=== PATIENT | female | born 1990 | race Caucasian/White ===

== ENCOUNTER → 2018-01-12 08:28 | Outpatient (CLI) | payer BC, SELFPAY ==
[2018-01-12 08:55] LABS: Hemoglobin A1C 5.3 % (0.0-7.0)
== END ==
PROVIDERS: Visit Provider Nurse Practitioner Obstetrics & Gynecology
DX: O24.419 Gestational diabetes mellitus in pregnancy, unspecified control (principal)
CPT/HCPCS: 36415; 83036

== ENCOUNTER → 2018-05-23 16:42 | Outpatient (CLI) | payer BC, SELFPAY ==
[2018-05-23 17:02] LABS: Basophils % 0.2 % (0.1-2.0); Eosinophils # 0.1 K/mm3 (0.0-0.4); Eosinophils % 0.9 % (0.1-12.0); Hemoglobin 11.8 g/dL (12.2-16.2); Lymphocytes # 2.6 K/mm3 (0.7-4.5); Lymphocytes % 20.2 K/mm3 (10-50); Mean Corpuscular HGB Conc 32.7 g/dL (31.8-35.4); Mean Corpuscular Volume 88.7 fl (81-99); Mean Platelet Volume 6.8 fl (7.4-10.4); Monocytes # 0.6 K/mm3 (0.1-1.0); Monocytes % 4.8 % (1.7-9.3); Neutrophils # 9.6 K/mm3 (1.8-7.8); Neutrophils % 73.9 % (37.0-80.0); Platelet Count 350 K/mm3 (142-424); Red Blood Count 4.06 M/mm3 (4.20-5.40); Red Cell Distribution Width 14.7 % (11.5-17.5)
[2018-05-25 10:13] LABS: HIV Screen 4th Generation wRfx Non Reactive (Non Reactive); Hepatitis B Surface Antigen Negative (Negative); Hepatitis C Antibody <0.1 s/co ratio (0.0-0.9); Rubella Antibodies, IgG 3.85 index (Immune >0.99)
[2018-05-26 09:09] LABS: Rapid Plasma Reagin Ab Titer Non Reactive (NonRea<1:1)
== END ==
PROVIDERS: Family Provider Nurse Practitioner Obstetrics & Gynecology; PCP Nurse Practitioner Family; Visit Provider Nurse Practitioner Obstetrics & Gynecology
DX: Z34.90 Encounter for supervision of normal pregnancy, unspecified, unspecified trimester (principal)
CPT/HCPCS: 36415; 85025; 86592; 86703; 86762; 86850; 87340; 87380; G0432

== ENCOUNTER → 2018-06-05 13:03 | Outpatient (CLI) | payer BC, SELFPAY ==
--- NOTE | 2018-06-05 13:05 | US_ITS ---
US OB transvaginal HISTORY: ITS.REASON: US OB Dates ORDERING PHYSICIAN: Rivera Burnett MD PATIENT AGE: 28 years COMPARISON: None FINDINGS: An intrauterine gestational sac is present with a pole with a crown-rump length of 2.90cm correlating to gestational age of 9w6d . heart tones are present with an FHR of 186 bpm's. Yolk sac is noted. The amnion and chorion have not yet fused. Adnexa: There is a 2 similar left corpus luteum cyst. IMPRESSION: Live intrauterine gestation at 9 weeks 6 days as described above. Estimated due date by ultrasound is 01/02/2019
== END ==
PROVIDERS: Family Provider Nurse Practitioner Obstetrics & Gynecology; Visit Provider Nurse Practitioner Obstetrics & Gynecology
DX: O26.841 Uterine size-date discrepancy, first trimester (principal)
CPT/HCPCS: 76817

== ENCOUNTER → 2018-08-16 12:32 | Outpatient (CLI) | payer BC, SELFPAY ==
--- NOTE | 2018-08-16 12:37 | US_ITS ---
US OB /maternal detail: INDICATION: ITS.REASON: US OB Complete ORDERING PHYSICIAN: Rivera Burnett MD PATIENT AGE: 28 years TECHNIQUE: ultrasound transabdominal scanning. COMPARISON: No previous relevant studies. FINDINGS: Single viable intrauterine gestation. Breech position. Placenta: ANT w/ Post Accessory lobe placenta grade 1. There is average amount fluid. The cervix appears satisfactory. Closed and measuring 5 cm in length. Complete survey performed and was unremarkable on the submitted images as in PACS. No discrete anomalies identified on survey imaging by technologist. Active fetus. Three-vessel cord with satisfactory umbilical cord insertion. 4- chamber heart noted. Survey of brain & ventricles unremarkable. Face and neck survey unremarkable. Diaphragm and chest views unremarkable. Abdomen: Both kidneys noted and unremarkable. Stomach noted and satisfactory. Spine: Survey of the spine satisfactory with no anomalies identified nor imaged. Both arms and legs noted. Amniotic Fluid: Adequate. Maternal adnexa: No significant findings. Measurements: Average ultrasound age 20w2d. Gestational Age 20w0d. Estimated due date by ultrasound age 0301/01/2019. Estimated weight 362 grams. BPD = 19w6d OFD = 21w0d HC = 19w6d AC = 20w6d FL = 20w4d Growth Percentile= 77 percentile Heart Rate = 158 Cerebellum = 20w0d Humerus = 20w4d HC/AC is 1.11 (1.09-1.26). CI is 73% (70-86%). FL/BPD is 74%. FL/AC is 22%. IMPRESSION: Single live fetus in breech presentation with an average ultrasound age of 20 weeks and 2 days. No obvious anomalies. Please see above for detail
== END ==
PROVIDERS: Visit Provider Nurse Practitioner Obstetrics & Gynecology
DX: Z36.0 Encounter for antenatal screening for chromosomal anomalies (principal)
CPT/HCPCS: 76811

== ENCOUNTER → 2018-09-28 07:32 | Outpatient (CLI) | payer BC, SELFPAY ==
[2018-09-28 08:56] LABS: Glucose,Fasting 90 mg/dL (60-105)
[2018-09-28 10:48] LABS: Glucose 1 Hour 210 mg/dL (74-106)
== END ==
PROVIDERS: Visit Provider Nurse Practitioner Obstetrics & Gynecology
DX: Z34.90 Encounter for supervision of normal pregnancy, unspecified, unspecified trimester (principal)
CPT/HCPCS: 36415; 82951

== ENCOUNTER → 2018-10-04 07:26 | Outpatient (CLI) | payer BC, SELFPAY ==
[2018-10-04 07:59] LABS: Glucose,Fasting 93 mg/dL (60-105)
[2018-10-04 09:36] LABS: Glucose 1 Hour 225 mg/dL (74-106)
[2018-10-04 10:40] LABS: Glucose 2 Hour 138 mg/dL (74-106)
[2018-10-04 11:23] LABS: Glucose 3 Hour 166 mg/dL (74-106)
== END ==
PROVIDERS: Visit Provider Nurse Practitioner Obstetrics & Gynecology
DX: Z34.90 Encounter for supervision of normal pregnancy, unspecified, unspecified trimester (principal)
CPT/HCPCS: 36415; 82951

== ENCOUNTER → 2018-11-29 17:48 | Outpatient (CLI) | payer BC, SELFPAY | PROVIDERS: Visit Provider Nurse Practitioner Obstetrics & Gynecology | DX: Z34.90 Encounter for supervision of normal pregnancy, unspecified, unspecified trimester (principal); Z3A.35 35 weeks gestation of pregnancy | CPT/HCPCS: 86403 ==

== ENCOUNTER 2018-12-03 17:52 | Inpatient (IN) ==
[2018-12-03 18:12] LABS: Microscopic, Urine URINE MICROSCOPIC (MICROSCOPIC)
[2018-12-03 18:14] LABS: Appearance,Urine CLOUDY (Clear); Bilirubin,Urine Negative (Negative); Blood, Urine 3+ (Negative); Color,Urine ORANGE (Yellow); Glucose,Urine (UA) Negative (Negative); Ketones,Urine 1+ (Negative); Leukocyte Esterase,Urine Negative (Negative); Protein,Urine Negative (Negative); Specific Gravity, Urine <= 1.005 (1.005-1.030); Urobilinogen,Urine 0.2 EU/dl (0.2)
[2018-12-03 18:22] LABS: RBC,Urine 50-100 #/hpf (0-3)
[2018-12-03 20:35] LABS: Basophils % 0.2 % (0.1-2.0); Eosinophils # 0.1 K/mm3 (0.0-0.4); Eosinophils % 0.6 % (0.1-12.0); Hematocrit 37.3 % (37.0-47.0); Hemoglobin 12.9 g/dL (12.2-16.2); Lymphocytes # 2.8 K/mm3 (0.7-4.5); Lymphocytes % 20.8 % (10-50); Mean Corpuscular HGB Conc 34.4 g/dL (31.8-35.4); Mean Corpuscular Hemoglobin 31.7 pg (27.0-31.2); Mean Corpuscular Volume 92.1 fl (81-99); Monocytes # 0.7 K/mm3 (0.1-1.0); Monocytes % 4.8 % (1.7-9.3); Neutrophils % 73.6 % (37.0-80.0); Platelet Count 240 K/mm3 (142-424); Red Blood Count 4.05 M/mm3 (4.20-5.40); Red Cell Distribution Width 13.4 % (11.5-17.5); White Blood Count 13.5 K/mm3 (4.8-10.8)
[2018-12-03 20:44] LABS: Anion Gap 15.3 mEq/L (5-15); Calcium 9.3 mg/dL (8.5-10.1); Potassium 3.3 mmoL/L (3.5-5.1); Uric Acid 4.1 mg/dL (2.6-7.2)
[2018-12-03 21:02] LABS: D-Dimer 570 ng/mL (0-400)
[2018-12-03 21:07] LABS: Activated Partial Thrombo Time 26.5 seconds (23.6-34.0); INR 0.89 (0.9-1.1); Prothrombin Time 9.2 seconds (9.4-11.8)
[2018-12-03 21:11] LABS: Fibrinogen > 500 mg/dL (204-500)
--- NOTE | 2018-12-04 06:56 | Progress Note ---
Internal Medicine - PN: Subj *Date: 12/03/18 *Time: 21:00 Interval history: This 28-year-old 2, para 1, Ab0 white female is admitted at 35-5/7 weeks with regular contractions at 2 cm of dilatation. She has been on labetalol at home, and her blood pressure on admission is 152/101. DTRs are normal. She states that she passed a large clot at home, but no bleeding is evident here. External monitor reveals a normal reactive contraction stress test. She was initially treated with a single dose of labetalol, intravenous fluids, and [place], but her contractions continue. Cervix is unchanged. She states that she was admitted early with her first and treated with intravenous magnesium sulfate before delivery at 36 weeks. The plan is to admit for intravenous magnesium sulfate for 2 days for neuroprotection and in an effort to stop her labor. [facility] labs have been drawn. Please refer to her complete up-to-date history and physical on the chart. Exam Vital signs and Labs for Last 24 Hours: Temp Pulse Resp BP Pulse Ox 97.6 F 99 H 20 154/103 H 94 L 12/03/18 18:04 12/03/18 19:40 12/03/18 18:04 12/03/18 19:40 12/03/18 18:04 Laboratory Results - last 24 hr 12/03/18 18:00: Urine Color [place], Urine Appearance Cloudy, Urine pH 7.0, Ur Specific [place] <= 1.005, Urine Protein Negative, Urine Glucose (UA) Negative, Urine Ketones 1+, Urine Blood 3+, Urine Nitrate Negative, Urine Bilirubin Negative, Urine Urobilinogen 0.2, Ur Leukocyte Esterase Negative, Urine RBC 50- 100, Ur Squamous Epith Cells 3-5 12/03/18 19:50: WBC 13.5 H, RBC 4.05 L, Hgb 12.9, Hct 37.3, MCV 92.1, MCH 31.7 H , MCHC 34.4, RDW 13.4, Plt Count 240, MPV 8.0, Neut % (Auto) 73.6, Lymph % (Auto) 20.8, [place] % (Auto) 4.8, Eos % (Auto) 0.6, Baso % (Auto) 0.2, Neut # (Auto) 10.0 H, Lymph # (Auto) 2.8, [place] # (Auto) 0.7, Eos # (Auto) 0.1, Baso # (Auto) 0.0 12/03/18 19:50: PT 9.2 L, INR 0.89 L, APTT 26.5, Fibrinogen > 500 H, D-Dimer 570 H* 12/03/18 19:50: Sodium 136, Potassium 3.3 L, Chloride 101, Carbon Dioxide 23, Anion Gap 15.3 H, BUN 7, Creatinine 0.41 L, Estimated Creat Clear 254, Estimated GFR 185, Est GFR ( Amer) 224, Glucose 85, Uric Acid 4.1, Calcium 9.3, Magnesium 1.8, AST 15, ALT 28 12/03/18 19:50: Blood Type O Positive, Antibody Screen Negative 12/04/18 05:48: Magnesium 5.2 H D I & O for Last 24 hours: Intake & Output 12/01/18 12/02/18 12/03/18 12/04/18 11:59 11:59 11:59 11:59 Output Total 600 / 600 Balance -600 / -600 Weight 173 lb 8 oz
--- NOTE | 2018-12-04 06:58 | Progress Note ---
Internal Medicine - PN: Subj *Date: 12/04/18 *Time: 06:56 Interval history: This is hospital day #2. Afebrile. Are stable, with a blood pressure of 137/76. DTRs are normal. There is been no vaginal bleeding. Her contractions are irregular. Plan is to continue on magnesium sulfate for now. Dr. Burnett will be assuming care this morning. Exam Vital signs and Labs for Last 24 Hours: Temp Pulse Resp BP Pulse Ox 97.6 F 99 H 20 154/103 H 94 L 12/03/18 18:04 12/03/18 19:40 12/03/18 18:04 12/03/18 19:40 12/03/18 18:04 Laboratory Results - last 24 hr 12/03/18 18:00: Urine Color [place], Urine Appearance Cloudy, Urine pH 7.0, Ur Specific [place] <= 1.005, Urine Protein Negative, Urine Glucose (UA) Negative, Urine Ketones 1+, Urine Blood 3+, Urine Nitrate Negative, Urine Bilirubin Negative, Urine Urobilinogen 0.2, Ur Leukocyte Esterase Negative, Urine RBC 50- 100, Ur Squamous Epith Cells 3-5 12/03/18 19:50: WBC 13.5 H, RBC 4.05 L, Hgb 12.9, Hct 37.3, MCV 92.1, MCH 31.7 H , MCHC 34.4, RDW 13.4, Plt Count 240, MPV 8.0, Neut % (Auto) 73.6, Lymph % (Auto) 20.8, [place] % (Auto) 4.8, Eos % (Auto) 0.6, Baso % (Auto) 0.2, Neut # (Auto) 10.0 H, Lymph # (Auto) 2.8, [place] # (Auto) 0.7, Eos # (Auto) 0.1, Baso # (Auto) 0.0 12/03/18 19:50: PT 9.2 L, INR 0.89 L, APTT 26.5, Fibrinogen > 500 H, D-Dimer 570 H* 12/03/18 19:50: Sodium 136, Potassium 3.3 L, Chloride 101, Carbon Dioxide 23, Anion Gap 15.3 H, BUN 7, Creatinine 0.41 L, Estimated Creat Clear 254, Estimated GFR 185, Est GFR ( Amer) 224, Glucose 85, Uric Acid 4.1, Calcium 9.3, Magnesium 1.8, AST 15, ALT 28 12/03/18 19:50: Blood Type O Positive, Antibody Screen Negative 12/04/18 05:48: Magnesium 5.2 H D I & O for Last 24 hours: Intake & Output 12/01/18 12/02/18 12/03/18 12/04/18 11:59 11:59 11:59 11:59 Output Total 600 / 600 Balance -600 / -600 Weight 173 lb 8 oz
--- NOTE | 2018-12-04 09:27 | Progress Note ---
Internal Medicine - PN: Subj *Date: 12/04/18 *Time: 09:24 Interval history: She is admitted with increased in the 150/100 range. She has been taking labetalol 200 mg twice daily. She was also having contractions. Better this morning. Her blood pressure is in the 130s over 80 range. Her blo od work was all normal. We will plan to give her steroids today and again tomorrow. We will plan to deliver her in 48 hours. She will be 36 weeks at that time. Exam Vital signs and Labs for Last 24 Hours: Temp Pulse Resp BP Pulse Ox 97.6 F 99 H 20 154/103 H 94 L 12/03/18 18:04 12/03/18 19:40 12/03/18 18:04 12/03/18 19:40 12/03/18 18:04 Laboratory Results - last 24 hr 12/03/18 18:00: Urine Color [place], Urine Appearance Cloudy, Urine pH 7.0, Ur Specific [place] <= 1.005, Urine Protein Negative, Urine Glucose (UA) Negative, Urine Ketones 1+, Urine Blood 3+, Urine Nitrate Negative, Urine Bilirubin Negative, Urine Urobilinogen 0.2, Ur Leukocyte Esterase Negative, Urine RBC 50- 100, Ur Squamous Epith Cells 3-5 12/03/18 19:50: WBC 13.5 H, RBC 4.05 L, Hgb 12.9, Hct 37.3, MCV 92.1, MCH 31.7 H , MCHC 34.4, RDW 13.4, Plt Count 240, MPV 8.0, Neut % (Auto) 73.6, Lymph % (Auto) 20.8, [place] % (Auto) 4.8, Eos % (Auto) 0.6, Baso % (Auto) 0.2, Neut # (Auto) 10.0 H, Lymph # (Auto) 2.8, [place] # (Auto) 0.7, Eos # (Auto) 0.1, Baso # (Auto) 0.0 12/03/18 19:50: PT 9.2 L, INR 0.89 L, APTT 26.5, Fibrinogen > 500 H, D-Dimer 570 H* 12/03/18 19:50: Sodium 136, Potassium 3.3 L, Chloride 101, Carbon Dioxide 23, Anion Gap 15.3 H, BUN 7, Creatinine 0.41 L, Estimated Creat Clear 254, Estimated GFR 185, Est GFR ( Amer) 224, Glucose 85, Uric Acid 4.1, Calcium 9.3, Magnesium 1.8, AST 15, ALT 28 12/03/18 19:50: Blood Type O Positive, Antibody Screen Negative 12/04/18 05:48: Magnesium 5.2 H D I & O for Last 24 hours: Intake & Output 12/01/18 12/02/18 12/03/18 12/04/18 11:59 11:59 11:59 11:59 Output Total 600 / 600 Balance -600 / -600 Weight 173 lb 8 oz - Constitutional no acute distress Assessment and Plan (1) Chronic hypertension affecting Current visit: Yes Status: Acute Category: Medical Code(s): O10.919 - Unspecified pre-existing hypertension complicating , unspecified trimester (2) induced hypertension, antepartum Current visit: Yes Status: Acute Category: Medical Code(s): O13.9 - Ges tational [-induced] hypertension without significant proteinuria, unspecified trimester (3) labor in third trimester Current visit: Yes Status: Acute Category: Medical Code(s): O60.03 - labor without delivery, third trimester - Assessment and plan all Dx Assessment and Plan for all problems:: She was having contractions last night and these have not's test is reactive. Her blood pressure is a over 80. We have given her 1 dose of steroids. We will plan to deliver her in 48 hours.
--- NOTE | 2018-12-05 08:26 | Progress Note ---
Internal Medicine - PN: Subj *Date: 12/05/18 *Time: 08:25 Interval history: She continues to do well this morning. Her blood pressure settled into the 120s over 60s. She denies headache or scotomata. Her nonstress test is reactive. We will plan to deliver her tomorrow. Exam Vital signs and Labs for Last 24 Hours: Temp Pulse Resp BP Pulse Ox 97.6 F 99 H 20 122/69 94 L 12/03/18 18:04 12/03/18 19:40 12/03/18 18:04 12/05/18 07:35 12/03/18 18:04 Laboratory Results - last 24 hr 12/05/18 05:02: POC Glucose 115 H 12/05/18 05:55: Magnesium 5.5 H I & O for Last 24 hours: Intake & Output 12/02/18 12/03/18 12/04/18 12/05/18 11:59 11:59 11:59 11:59 Intake Total 2234 / 2234 Output Total 600 / 600 2930 / 2930 Balance -600 / -600 -696 / -696 Weight 173 lb 8 oz - Constitutional no acute distress Assessment and Plan (1) Chronic hypertension affecting Current visit: Yes Status: Acute Category: Medical Code(s): O10.919 - Unspecified pre-existing hypertension complicating , unspecified trimester (2) induced hypertension, antepartum Current visit: Yes Status: Acute Category: Medical Code(s): O13.9 - Gestational [-induced] hypertension without significant proteinuria, unspecified trimester (3) labor in third trimester Current visit: Yes Status: Acute Category: Medical Code(s): O60.03 - labor without delivery, third trimester - Assessment and plan all Dx Assessment and Plan for all problems:: She has received 2 doses of steroids. We are awaiting the results of her 24- hour urine. We will plan to deliver her tomorrow. Her blood pressure has stabilized on magnesium sulfate.
--- NOTE | 2018-12-06 09:50 | Progress Note ---
Labor Note - Subjective: Date: 12/06/18 Time: 09:49 regular contraction - Objective: NST:: Reactive Contractions:: every 2-3 minutes Cervical Dilation:: 2-3 Effacement:: 50% Station: -1 Membranes: artificially ruptured Comment:: I ruptured her membranes and there was clear fluid. - Fetus: Monitoring?: Yes monitoring type:: Internal and External Comment:: I inserted an IUPC. - Assessment: Labor progressing?: Yes Cephalopelvic disproportion?: No Patient Problems: All Active Problems Chronic hypertension affecting (Acute) induced hypertension, antepartum (Acute) labor in third trimester (Acute) (Acute) - Plan: Anesthesia for epidural?: Yes Continue to labor down?: Yes Plan for ?: No Continue to monitor?: Yes Start pushing?: No Comment:: We started her on oxytocin this morning. Her pressure has stabilized on the magnesium sulfate and labetalol. She has a previous history of -i nduced hypertension. We will plan for a vaginal delivery.
--- NOTE | 2018-12-06 10:58 | Progress Note ---
[facility] Anesthesia Checklist - Patient Identification Patient Identification: Arm Band, Verbal (Name & ) - Structural Data Admitted From: Home Planned Operative Procedure/s: Labor epidural Consent for Planned Operative Procedure(s) Verified: Yes Verified Documents: Surgical Consent, History and Physical - Chart Verification Results Verified: CBC - Additional verifications Patient : Yes Anesthesia Reactions: Yes (Failed epidural x2) - Airway Assessment C-Spine Mobility Assessed: Yes TMJ Mobility Assessed: Yes Dentition: Good Dentition - Neurological Assessment Level of Consciousness: Awake Hx Seizures: No Numbness or tingling in extremities: No - Anesthesia Plan Anesthesia Risk discussed: Yes Anesthesia Plan: Verified ASA Class: III Anesthesia Type: Epidural [facility] History I have reviewed the patient's past medical history: Yes Medical History: Reports:: Gastroesophageal Reflux Disease(GERD), Hypertension ( induced) *Have you ever received a pneumonia vaccine?: No *Have you received a flu vaccine this season?: No Comment:: Gestational DM, Preclampsia (magnesium gtt), Prelabor Other Surgeries: Yes: Cholecystectomy. No: Amputation: No Fractures: No - *Social History Smoking Status: Never smoker Alcohol Intake: never Alcohol Intake Frequency:: holidays/special occasions only Substance Use Type: denies use *Occupational Status:: employed Housing: house Household Members: family *Travel in the last 8 weeks: None - Psychiatric History Expresses thoughts of harming self/others: None Suicide Plan Description: No Plan Family Hx:: Stroke, Hypertension Para: 1
--- NOTE | 2018-12-06 11:28 | Progress Note ---
Labor Note - Subjective: Date: 12/06/18 Time: 11:27 regular contraction - Objective: NST:: Reactive Contractions:: every 2-3 minutes Cervical Dilation:: 4 Effacement:: 90% Station: -1 Membranes: artificially ruptured - Fetus: Monitoring?: Yes monitoring type:: Internal and External - Assessment: Labor progressing?: Yes Cephalopelvic disproportion?: No Patient Problems: All Active Problems Chronic hypertension affecting (Acute) induced hypertension, antepartum (Acute) labor in third trimester (Acute) (Acute) - Plan: Anesthesia for epidural?: Yes Continue to labor down?: Yes Plan for ?: No Continue to monitor?: Yes Start pushing?: No Comment:: She is doing well. She is having regular contractions. She has changed her cervix. We will continue with IV oxytocin and expect a vaginal delivery.
--- NOTE | 2018-12-06 13:50 | Progress Note ---
Labor Note - Subjective: Date: 12/06/18 Time: 13:49 regular contraction - Objective: NST:: Reactive Contractions:: every 2-3 minutes Cervical Dilation:: 6 Effacement:: 100% Station: 0 Membranes: artificially ruptured - Fetus: Monitoring?: Yes monitoring type:: Internal and External - Assessment: Labor progressing?: Yes Cephalopelvic disproportion?: No Patient Problems: All Active Problems Chronic hypertension affecting (Acute) induced hypertension, antepartum (Acute) labor in third trimester (Acute) (Acute) - Plan: Anesthesia for epidural?: Yes Continue to labor down?: Yes Plan for ?: No Continue to monitor?: Yes Start pushing?: No Comment:: She seems to be progressing nicely. Cervix has changed. We will continue to labor down.
--- NOTE | 2018-12-06 14:57 | Procedure Note ---
- Delivery Note Delivery Date:: 12/06/18 Delivery Time:: 14:35 Anesthesia Type: Epidural Was labor medically induced?: Yes Induction method: per pitocin protocol Gestational age (weeks): 36 Infant delivered prior to 39 weeks?: Yes Justification for early elective delivery:: Gestational Hypertension Infant Gender: Male at 1 minute: 8 at 5 minutes: 9 AF:: Clear fluid Delivery Procedure:: She is a 28-year-old 2 para 1 at 36 weeks gestational age. She was admitted 2 days ago with increased blood pressure. She has been followed throughout the with chronic hypertension and has been on labetalol 200 mg twice daily. She came in with blood pressures in the 150/100 range. She had a headache. As result of that she was admitted and started on IV oxytocin. We also gave her steroids. This morning she was started on IV oxytocin and had her membranes ruptured. Under labor epidural she progressed to full dilation and delivered spontaneously a liveborn male child at 2:35 PM in the afternoon of December 06, 2018. On deliver the head the anterior shoulder delivered easily followed by the rest of the infant's body atraumatically. The cord was allowed to pulsate for approximately 1 minute and then was doubly clamped and cut. The baby was then handed off to Dr. Still who assigned Apgars of 8 at 1 minute and 9 at 5 minutes. We then obtained cord blood as well as cord pH. The pH was 7.30. Using gentle traction on the cord and countertraction the fundus I was able to easily deliver the placenta intact. Had a normal three-vessel cord. There were no vaginal or perineal lacerations. She received IV oxytocin. She did have some uterine atony and as a result of this we elected to give her 1 dose of Hemabate. This settled her bleeding. The estimated blood loss was approximately 1175 cc with measuring the weight of the blood minus the weight of the drapes and blue towels. She has O+ blood, she is rubella immune and was group A streptococcus negative. She plans to breast-feed. Her site medical director is Dr. Still. Placental Delivery Description: Spontaneous
[2018-12-07 08:04] LABS: Hematocrit 32.3 % (37.0-47.0); Hemoglobin 10.8 g/dL (12.2-16.2)
--- NOTE | 2018-12-08 08:44 | Progress Note ---
Internal Medicine - PN: Subj *Date: 12/07/18 *Time: 08:00 Interval history: She is doing very well this morning. She is eating and drinking and ambulating. She is breast-feeding. Her lochia is normal. Exam Vital signs and Labs for Last 24 Hours: Temp Pulse Resp BP Pulse Ox 98.5 F 84 18 146/70 H 96 12/07/18 19:48 12/07/18 19:48 12/07/18 19:48 12/07/18 19:48 12/07/18 19:48 Laboratory Results - last 24 hr 12/06/18 18:13: POC Glucose 159 H I & O for Last 24 hours: Intake & Output 12/05/18 12/06/18 12/07/18 12/08/18 11:59 11:59 11:59 11:59 Intake Total 2234 / 2234 2886 / 2886 Output Total 2930 / 2930 Balance -696 / -696 2886 / 2886 - Constitutional no acute distress Assessment and Plan (1) Chronic hypertension affecting Current visit: Yes Status: Acute Category: Medical Code(s): O10.919 - Unspecified pre-existing hypertension complicating , unspecified trimester (2) induced hypertension, antepartum Current visit: Yes Status: Acute Category: Medical Code(s): O13.9 - Gestational [-induced] hypertension without significant proteinuria, unspecified trimester (3) labor in third trimester Current visit: Yes Status: Acute Category: Medical Code(s): O60.03 - labor without delivery, third trimester - Assessment and plan all Dx Assessment and Plan for all problems:: She continues to do well. We will plan to discharge her tomorrow. Her blood pressures are normal. She denies any headache. She is continuing with magnesium sulfate and we will discontinue the magnesium sulfate when the baby is 24 hours old.
--- NOTE | 2018-12-08 08:48 | Discharge Summary ---
General - General Admission date:: 12/03/18 Discharge date: 12/08/18 HPI HPI: She is a 28-year-old 2 now para 2 who is 36 weeks gestational age. She has been followed throughout the with increased blood pressure. Initially she had been started on 100 mg twice daily of labetalol and then this was increased to 200 mg twice daily. She was doing well on this and then started having increased blood pressure and was admitted with a blood pressure of 150/100. As a result of that we elected to give her steroids, start magnesium sulfate and deliver her. Hospital Course Hospital Course: She was initially started on IV magnesium sulfate and continued with her labetalol. She received IV steroids. On December 06, 2018 we elected to induce her labor. She was started on IV oxytocin and had her membranes ruptured. Under labor epidural she progressed to full dilation and delivered spontaneously a liveborn male child at 2:35 PM in the afternoon of December 06. The baby weighed 6 pounds 0 ounces with Apgars of 8 at 1 minute and 9 at 5 minutes. Immediately she did have a gush of blood and she received 1 dose of Hemabate. She also received IV oxytocin. This settled her bleeding. She has O+ blood, she is rubella immune and is group A streptococcus negative. She is breast-feeding. Her patternmaker is Dr. Still. She will be discharged home today to follow-up with me in approximately 2 weeks time. Her baby will stay for [facility]. Rhogam Administration: Not Indicated Objective Vital signs: Temp Pulse Resp BP Pulse Ox 98.5 F 84 18 146/70 H 96 12/07/18 19:48 12/07/18 19:48 12/07/18 19:48 12/07/18 19:48 12/07/18 19:48 no acute distress Results Labs on day of discharge: Labs from last 24 hours 12/06/18 18:13 POC Glucose 159 H DS: Diagnosis - Discharge Diagnosis (1) Chronic hypertension affecting Status: Acute (2) induced hypertension, antepartum Status: Acute (3) labor in third trimester Status: Acute Discharge Plan - Patient Discharge Instructions ACTIVITY: No heavy lifting DIET: continue same diet Additional Instructions: No heavy lifting, no strenuous activity, nothing in the vagina for 6 weeks. Patient Instructions: Sudden Infant Syndrome, DI for Labor and Delivery, Vaginal , DI for Depression, [facility] Shaken Baby Syndrome - Follow up Plan Disposition: Home, Self-Correction Medications: Home Medications Medication Instructions Recorded Confirmed Type 1 tab PO DAILY 05/23/18 12/04/18 History vitamin,calcium,sftiergo-rarb-nusut acid tablet ferrous sulfate 325 mg (65 mg 325 mg PO DAILY tab 11/15/18 12/04/18 History iron) tablet metoclopramide 5 mg tablet 5 mg PO QID 3 Days #12 tab 11/23/18 12/04/18 Rx Labetalol HCl 200 mg PO BID 12/04/18 12/04/18 History Prescriptions/Medication Reconciliation: Continue ferrous sulfate 325 mg (65 mg iron) tablet 325 mg PO DAILY tab metoclopramide 5 mg tablet 5 mg PO QID 3 Days #12 tab vitamin,calcium,pntxguen-hfdf-exjvb acid tablet 1 tab PO DAILY Labetalol HCl 200 mg PO BID
[2018-12-08 11:25] VITALS: BP 140/77
== END 2018-12-08 11:53 | disposition home or self-care (01) | DRG 805 ==
LOC: OBOUT 17:52 → OB 17:54
PROVIDERS: ADMIT Obstetrics & Gynecology; ATTEND Nurse Practitioner Obstetrics & Gynecology
DX: O60.14X0 Preterm labor third trimester with preterm delivery third trimester, not applicable or unspecified; Z37.0 Single live birth; O10.02 Pre-existing essential hypertension complicating childbirth; O11.4 Pre-existing hypertension with pre-eclampsia, complicating childbirth; Z3A.36 36 weeks gestation of pregnancy; O72.1 Other immediate postpartum hemorrhage
CPT/HCPCS: J2405